=== PATIENT | male | born 1945 | race Caucasian/White ===

== ENCOUNTER 2017-07-19 20:22 | Emergency (ER) | payer MEDICARE, OTHER ==
[2017-07-20] MEDS: HYDROCODONE/APAP (5/325) TAB PO (01:31)
== END 2017-07-20 01:31 | disposition home or self-care (01) ==
LOC: FTE 07-20 01:31
DX: S29.9XXA Unspecified injury of thorax, initial encounter (principal); S39.91XA Unspecified injury of abdomen, initial encounter; W18.39XA Other fall on same level, initial encounter; Y92.007 Garden or yard of unspecified non-institutional (private) residence as the place of occurrence of the external cause
CPT/HCPCS: 71100; 74176; 99284-25